=== PATIENT | male | born 1970 | race Caucasian/White ===

== ENCOUNTER 2018-08-25 23:55 | Emergency (ER) | payer OTHER ==
[2018-08-26 00:04] VITALS: BP 129/83
[2018-08-26] MEDS ORDERED: ACETAMINOPHEN 500 MG TAB PO ONE (00:27)
[2018-08-26] MEDS ORDERED: IBUPROFEN 200 MG TAB PO ONE (00:27)
--- NOTE | 2018-08-26 00:30 | EDPHY ---
H & P Stated Complaint: R hand pain (fx 3 wks ago, cut yesterday, seen at [facility]) Time Seen by Provider: 08/26/18 00:06 HPI/ROS: HPI The patient presents with right hand pain for the last several hours. He was recently diagnosed with right 5th proximal phalanx fracture as well as flexor tendon injury with laceration of his proximal palm which occurred yesterday. He has been seen at a few different emergency department, most recently earlier today is at [facility] in [place]. He is currently taking Keflex as prophylaxis for infection. As he is also taking ibuprofen though taking about 400 mg quite sporadically. As he does not have any fevers or chills, nausea or vomiting increased redness, numbness or tingling of his hand. He has plans to call the Orthopedics Department [facility] in the morning tomorrow.. REVIEW OF SYSTEMS 10 systems were reviewed and negative with the exception of the elements mentioned in the history of present illness. PMHx: Right hand injuries as detailed above, [id number] Soc Hx: Lives in [place], history of smoking PHYSICAL General Appearance: Alert, no distress Eyes: Pupils equal and round no pallor or injection ENT, Mouth: Mucous membranes moist Respiratory: Breathing comfortably Neurological: A&O, moves all extremities Skin: Warm and dry, no rashes Musculoskeletal: Neck is supple non tender Extremities: Right hand with several lacerations in the proximal palmar surface of the hand and palm are wrist with no surrounding erythema, warmth, edema, sutures are in place, there is limited range of motion of his wrist secondary to pain, capillary refill in his fingers as brisk, he has sensation intact to light touch of his fingers, he has 2+ radial pulses Psychiatric: Patient is oriented X 3, there is no agitation Source: Patient Exam Limitations: No limitations - Personal History Current Tetanus/Diphtheria Vaccine: Yes Current Tetanus Diphtheria and Acellular Pertussis (TDAP): Yes - Medical/Surgical History Hx Asthma: No Hx Chronic Respiratory Disease: No Hx Diabetes: No Hx Cardiac Disease: No Hx Renal Disease: No Hx Cirrhosis: No Hx Alcoholism: No Hx HIV/AIDS: No Hx Splenectomy or Spleen Trauma: No - Social History Smoking Status: Heavy smoker Constitutional: Initial Vital Signs Temperature (C) 36.6 C 08/26/18 00:01 Heart Rate 97 08/26/18 00:01 Respiratory Rate 16 08/26/18 00:01 Blood Pressure 129/83 H 08/26/18 00:01 O2 Sat (%) 99 08/26/18 00:01 O2 Delivery Mode Room Air Allergies/Adverse Reactions: naproxen [Naproxen] Allergy (Mild, Verified 06/16/11 21:29) Hives bupropion [From Wellbutrin] Allergy (Verified 08/25/18 23:59) trazodone Allergy (Verified 08/25/18 23:59) Home Medications: Medication Instructions Recorded Keflex 08/25/18 Omeprazole 08/25/18 Zofran 08/25/18 Medical Decision Making Differential Diagnosis: 48-year-old man right-hand dominant with initial right hand fracture, followed by right hand laceration with flexor tendon injury is presents to our emergency department with continued pain. Is on exam, I do not see signs of any cellulitis or deep space wound infection. He is neurovascularly intact. As he does not appear to have compartment syndrome. Plan for continued immobilization with splint. As we have we wrapped his splint. He is taking ibuprofen sporadically and thus we have encouraged him to use ibuprofen and Tylenol regularly around the clock. He has follow-up with Orthopedics tomorrow. Departure - Departure Disposition: Home, Routine, Self-Care Clinical Impression: Laceration of right hand involving tendon Qualifiers: Encounter type: subsequent encounter Qualified Code(s): S61.411D - Laceration without foreign body of right hand, subsequent encounter Proximal phalanx fracture of finger Qualifiers: Encounter type: subsequent encounter Finger: little finger Fracture type: closed Fracture alignment: displaced Laterality: right Fracture healing: with routine healing Qualified Code(s): S62.616D - Displaced fracture of proximal phalanx of right little finger, subsequent encounter for fracture with routine healing Condition: Good Instructions: Hand Fracture (ED), Tendon Laceration (ED) Additional Instructions: It is important that you follow up with the orthopedic doctor it was recommended that you see. If you have any trouble getting in to that doctor, I have given you the name of our hand surgeon on-call. I recommend you take ibuprofen 600 mg with acetaminophen 1000 mg every 6 hr as needed for pain. You can continue to ice and elevate your hand and arm as well. Referrals: Mast,Tushar, DO [Primary Care Provider] - As per Instructions Kan Levy MD [Medical Doctor] - As per Instructions
== END 2018-08-26 00:48 | disposition home or self-care (01) ==
DX: S61.411D Laceration without foreign body of right hand, subsequent encounter (principal); S62.616D Displaced fracture of proximal phalanx of right little finger, subsequent encounter for fracture with routine healing

== ENCOUNTER 2018-08-28 22:16 | Emergency (ER) | payer OTHER ==
[2018-08-28 22:29] VITALS: BP 125/80
--- NOTE | 2018-08-28 22:41 | EDPHY ---
H & P Stated Complaint: REINJ R HAND/FELL ONE HR AGO Time Seen by Provider: 08/28/18 22:29 HPI/ROS: Chief Complaint: Right hand pain HPI: 48-year-old male complaining of right hand pain. Patient had a mechanical fall several days ago on an outstretched hand. His sustained a proximal 5th phalanx fracture as well as a flexor tendon injury and lacerations on the palm of his hand. He was initially seen at [facility]. He has been seen at several to emergency department including this 1 since that time, last was 2 days ago. Patient also states he saw orthopedist earlier today who referred him to a hand surgeon. The patient states that earlier tonight he fell again on his hand is complaining of pain. He is concerned he may have re- injured it. No new numbness or weakness. No discharge from the wound. He is leaving the splint in place unless he takes it off to shower. He has been taking ibuprofen and acetaminophen for pain. He is taking Keflex as a prophylactic antibiotic for his laceration. Denies any fevers or chills. No streaking up his arm. No discharge from the wound. ROS: 10 systems were reviewed and were negative except those elements noted in the HPI. Social History: No smoking Family History: non-contributory Physical Exam: General: Awake, alert, no acute distress Right hand: Patient has 2 lacerations which are sutured on his proximal right hand. There is no erythema or discharge. Patient has tenderness along his proximal 5th phalanx. No other deformity noted. Compartments are soft. Sensations intact in all dermatomes. Capillary refills less than 2 sec. There is no significant swelling. Skin: No rash - Personal History Current Tetanus Diphtheria and Acellular Pertussis (TDAP): Yes - Medical/Surgical History Hx Asthma: No Hx Chronic Respiratory Disease: No Hx Diabetes: No Hx Cardiac Disease: No Hx Renal Disease: No Hx Cirrhosis: No Hx Alcoholism: No Hx HIV/AIDS: No Hx Splenectomy or Spleen Trauma: No Other PMH: TRIPLE HERNIA SX, KNEE R SX, R ANKLE SX - Social History Smoking Status: Heavy smoker Constitutional: Initial Vital Signs Temperature (C) 36.3 C 08/28/18 22:26 Heart Rate 103 H 08/28/18 22:26 Respiratory Rate 16 08/28/18 22:26 Blood Pressure 125/80 H 11/15/18 22:26 O2 Sat (%) 95 08/28/18 22:26 O2 Delivery Mode Room Air Allergies/Adverse Reactions: naproxen [Naproxen] Allergy (Mild, Verified 06/16/11 21:29) Hives bupropion [From Wellbutrin] Allergy (Verified 08/25/18 23:59) trazodone Allergy (Verified 08/25/18 23:59) Home Medications: Medication Instructions Recorded NK [No Known Home Meds] 08/28/18 Medical Decision Making ED Course/Re-evaluation: Patient has a known hand fracture with hand lacerations. There is no finding consistent with compartment syndrome or infection. Patient has been resplinted. He has been given the name of a hand surgeon bowel also refer him to Hand surgery here. She will call follow up with him tomorrow. He will continue his [id number] analgesia and his antibiotics. His Departure - Departure Disposition: Home, Routine, Self-Care Clinical Impression: Finger fracture, Injury of flexor tendon of hand, Hand laceration Condition: Good Instructions: Laceration (ED), Hand Fracture (ED) Additional Instructions: Continue alternating ibuprofen with acetaminophen for pain. Continue taking your oral antibiotics as prescribed. Follow up with hand surgeon in 2-3 days for further evaluation. Referrals: Sridhar Helton MD [Medical Doctor] - As per Instructions
== END 2018-08-28 23:01 | disposition home or self-care (01) ==
DX: S62.606D Fracture of unspecified phalanx of right little finger, subsequent encounter for fracture with routine healing (principal); S61.411D Laceration without foreign body of right hand, subsequent encounter; S66.811D Strain of other specified muscles, fascia and tendons at wrist and hand level, right hand, subsequent encounter